=== PATIENT | male | born 1965 | race Hispanic/Latino ===

== ENCOUNTER 2016-08-19 09:34 | Emergency (ER) | payer OTHER ==
[2016-08-19] MEDS ORDERED: PROVENTIL IH ONE (12:25)
--- NOTE | 2016-08-19 13:22 | Emergency Department Report ---
HPI - General Chief Complaint: Upper Respiratory Infection Time Seen by Provider: 08/19/16 12:23 - HPI HPI: 50-year-old male comes in for complaint of cough chills, coughing up yellow mucous, body aches headaches and facial pressure 3 days. Patient denies any nausea vomiting no fever no chills. He does report that he's been using his albuterol inhaler at least twice a day usually in the past his only been month that he may use it. He does have a past medical history of hypertension anxiety and insomnia. He reports that he is on trazodone, anxiety medication and he thinks is on hydrochlorothiazide. He does admit to right nose just chest discomfort with deep breathing. ED Past Medical Hx - Past Medical History Hx Asthma: Yes Additional medical history: Bronchitis - Surgical History Past Surgical History?: No - Social History Smoking Status: Current Every Day Smoker Substance Use Type: Alcohol - Medications Home Medications: Home Medications Medication Instructions Recorded Confirmed Last Taken Type ALBUTEROL Inhaler [ProAir HFA 2 puff IH QID PRN #1 container 08/19/16 Unknown Rx Inhaler] Promethazine/Phenyleph/Codeine 10 ml PO TID PRN #120 ml 08/19/16 Unknown Rx [Promethazine Vc-Codeine Syrup] ED Review of Systems ROS: Stated complaint: BRONCHITIS Other details as noted in HPI Physical Exam - Physical Exam Vital Signs: Vital Signs 08/19/16 09:48 Temperature 98.6 F Pulse Rate 93 H Respiratory 20 Rate Blood Pressure 129/85 O2 Sat by Pulse 100 Oximetry Physical Exam: GENERAL: Alert and oriented x3, no apparent distress, Normal Gait, atraumatic. HEAD: Head is normocephalic and a-traumatic. EYES: Extra ocular muscles are intact. Pupils are equal, round, and reactive to light and accommodation. EARS: symetrical, atraumatic, non tender, ear canal clear and moderate cerumen, tympanic membrance non inflamed. gross auditory nml bilaterally. NOSE: Nose symetrical, Nontender,Nares appeared normal. MOUTH:Mouth is well hydrated and without lesions. Tonsils nonerythematous or swollen, Uvula midline, Tongue not elevated. Mucous membranes are moist. Posterior pharynx clear, no exudate or lesions. Patent airways. NECK: Supple. Non edematous, No carotid bruits. No lymphadenopathy or thyromegaly. LUNGS: Symetrical with respiration, wheezing, no rales or crackles,. HEART: S1, S2 present, regular rate and rhythm without murmur, no rubs, no gallops. NEUROLOGIC: No focal Deficit, Cranial nerves II through XII are grossly intact. No loss of sensation, No facial droop, Negative rhomberg. PSYCHIATRIC: Mood is congruent with affect, denies suicidal or homicidal ideations. SKIN: Warm and dry, No lesions, No ulceration or induration present ED Course Vital Signs 08/19/16 09:48 Temperature 98.6 F Pulse Rate 93 H Respiratory 20 Rate Blood Pressure 129/85 O2 Sat by Pulse 100 Oximetry - Reevaluation(s) Reevaluation #1: 08/19/16 13:29 Reassessment of patient. Lungs are clear now no wheezing or rhonchus ED Medical Decision Making - Medical Decision Making Evaluated with his provider fast track nebulizer treatment were discussed the patient we'll discharge him the medication. Critical care attestation.: If time is entered above; I have spent that time in minutes in the direct care of this critically ill patient, excluding procedure time. ED Disposition Clinical Impression: Bronchitis Disposition: DISCHARGED TO HOME OR SELFCARE Is pt being admited?: No Does the pt Need Aspirin: No Condition: Stable Instructions: Chronic Bronchitis (ED) Additional Instructions: use inhaler 4 times a day when necessary for shortness of breathing and cough take the promethazine with codeine as prescribed. Follow-up with her primary care provider will also refer you to 1 that's closer to your home. Prescriptions: ALBUTEROL Inhaler [ProAir HFA Inhaler] 2 puff IH QID PRN #1 container PRN Reason: Shortness Of Breath Promethazine/Phenyleph/Codeine [Promethazine Vc-Codeine Syrup] 10 ml PO TID PRN #120 ml PRN Reason: Cough Referrals: PRIMARY MD NATASHA [Primary Care Provider] - 3-5 Days DESTINY GUNN MD [Staff Physician] - 3-5 Days Forms: Work/School Release Form(ED)
[2016-08-19 13:48] VITALS: BP 124/80
== END 2016-08-19 13:47 | disposition home or self-care (01) ==
LOC: ED 09:34
DX: J40 Bronchitis, not specified as acute or chronic (principal); J45.909 Unspecified asthma, uncomplicated; F17.200 Nicotine dependence, unspecified, uncomplicated

== ENCOUNTER 2016-08-27 13:51 | Outpatient (CLI) | payer OTHER ==
[2016-08-27 14:49] LABS: Bilirubin,Urine NEG (Negative); Blood,Urine NEG (Negative); Ketones,Urine TR mg/dL (Negative); Leukocyte Esterase,Urine NEG (Negative); Mucus,Urine 2+ /HPF; Nitrite,Urine NEG (Negative); Protein,Urine <15 mg/dL mg/dL (Negative); RBC,Urine < 1.0 /HPF (0.0-6.0); Urobilinogen,Urine < 2.0 mg/dL (<2.0); WBC,Urine < 1.0 /HPF (0.0-6.0)
== END 2016-08-27 13:52 | disposition home or self-care (01) ==
LOC: LAB 13:51
PROVIDERS: ATTEND Clinical Nurse Specialist Psychiatric/Mental Health
DX: F33.2 Major depressive disorder, recurrent severe without psychotic features (principal)
CPT/HCPCS: 81001